=== PATIENT | female | born 1940 | race Caucasian/White ===

== ENCOUNTER → 2016-07-28 | Outpatient (REF) ==
[~2016-07-28] MED LIST: ASPIRIN 81M81 MG/TA2 PO; CEFTIN 250250 MG/TAB PO; CIPRO 500MG TA500 MG PO; COZAAR 25MG25 MG/TAB PO; DOXYCYCLINE 10100 MG PO; FLOMAX 0.40.4 MG/CAP PO; GLUCOPHAGE500 MG/TAB PO; HCTZ; HIGH BLOOD PRESSURE; KETOROLAC10 MG PO; LASIX 20MG TABL20 MG PO; LEVAQUIN 750MG750 M1 PO; LEVOTHYROXIN0.088 MG PO; LOSARTAN POTASS1 TA2 PO; MACROBID 1100 MG/CAP PO; NORCO 325 MG-51 TAB PO; PERCOCET 325 MG1 TA2 PO; PERCOCET 5/321 UDTAB PO; PHENERGAN 25 TA25 MG PO; PHENERGAN W/CO120 M1 PO; PHENERGAN25 MG RC; PYRIDIUM 100MG100 MG PO; SYNTHROID0.088 MG/T PO; SYNTHROID0.1 MG/TAB PO; THYROID; TIROSINT125 MC1 PO; ULTRAM50 MG PO
== END ==
LOC: ZLAB.WCH 10:20
DX: Z01.89 Encounter for other specified special examinations (principal)

== ENCOUNTER → 2016-07-28 | Outpatient (REF) | LOC: ZLAB.WCH 10:25 | DX: Z01.89 Encounter for other specified special examinations (principal) ==

== ENCOUNTER 2016-10-20 05:23 | Day surgery (SDC) | payer MEDICARE, OTHER ==
[2016-10-20] VITALS (11 sets, daily range): BP systolic 131–180; BP diastolic 56–85; PULSE 54–64; TEMP 97.4–97.8
[~2016-10-20] VITALS: Ht 170.2 cm; Wt 84.7 kg
[~2016-10-20 05:23] MED LIST changes: -GLUCOPHAGE500 MG/TAB PO; -TIROSINT125 MC1 PO
[2016-10-20 06:37] LABS: CALCIUM 9.6 mg/dL (8.4-10.2); CREATININE, serum 0.69 mg/dL (0.52-1.25); POTASSIUM 4.1 mmol/L (3.4-5.0)
[2016-10-20] MEDS ORDERED: TIROSINT125 MC1 PO (06:54)
[2016-10-20] MEDS ORDERED: GLUCOPHAGE500 MG/TAB PO (06:59)
== END 2016-10-20 13:10 | disposition home or self-care (01) ==
LOC: SDCO 05:23
PROVIDERS: Nurse Anesthetist, Certified Registered
DX: N20.0 Calculus of kidney (principal); E11.9 Type 2 diabetes mellitus without complications; I10 Essential (primary) hypertension; E03.9 Hypothyroidism, unspecified; Z87.442 Personal history of urinary calculi; Z79.82 Long term (current) use of aspirin; Z79.899 Other long term (current) drug therapy
CPT/HCPCS: C1769; C1894; C2617; J0690; J1940; J2250; J2405; J2704; J3010; J7030; Q9967

== ENCOUNTER → 2020-12-03 | Outpatient (REF) ==
[~2020-12-03] MED LIST changes: +COUMADIN 5MG5 MG/TAB PO; +GLUCOPHAGE500 MG/TAB PO; +LIPITOR20 MG PO; +SYNTHROID0.112 MG/T PO; +TIROSINT125 MC1 PO; +TOPROL XL 25MG25 MG PO
== END ==
LOC: ZLAB.WCH 09:27
DX: Z01.89 Encounter for other specified special examinations (principal)

== ENCOUNTER 2020-12-04 08:00 | Inpatient (IN) | payer MEDICARE, OTHER ==
[~2020-12-04] VITALS: Ht 170.2 cm; Wt 75.5 kg
[~2020-12-04 08:00] MED LIST changes: -COUMADIN 5MG5 MG/TAB PO; -LIPITOR20 MG PO; -SYNTHROID0.112 MG/T PO; -TOPROL XL 25MG25 MG PO
[2020-12-04 08:59] LABS: BASO % 0.2 % (0.0-2.0); GRAN # 4.6 (1.4-6.5); GRAN % 72.4 % (42.2-75.2); HEMATOCRIT 45.6 % (37.0-47.0); LYMPH # 1.1 (1.2-3.4); LYMPH % 17.1 % (20.0-51.0); MEAN CELL VOLUME 89 fl (80.0-100.0); MEAN CORPUSCULAR HEMOGLOBIN 29 pg (27.0-31.0); MEAN CORPUSCULAR HGB CONC 33 g/dl (33.0-37.0); MEAN PLATELET VOLUME 9.8 fl (7.4-10.4); MONO # 0.6 (0.1-0.6); PLATELET COUNT 170 K/mm3 (130-400); RED BLOOD COUNT 5.15 M/mm3 (4.10-5.30); REDCELL DISTRIBUTION WIDTH-CV 14.5 % (11.5-14.5)
[2020-12-04 09:22] LABS: ALANINE AMINOTRANSFERASE 45 U/L (4-34); ALBUMIN 3.9 gm/dL (3.5-5.0); ALKALINE PHOSPHATASE 87 U/L (50-136); ANION GAP 8 mmol/L (7-16); AST,SGOT 49 U/L (15-37); BILIRUBIN,TOTAL 0.7 mg/dL (0.0-1.0); BLOOD UREA NITROGEN 15 mg/dL (7-17); CALCIUM 8.7 mg/dL (8.4-10.2); CARBON DIOXIDE 23 mmol/L (22-30); CHLORIDE 104 mmol/L (98-107); CREATININE, serum 0.55 (0.52-1.25); GLUCOSE 171 mg/dL (74-106); INR 2.3 (0.8-3.0); POTASSIUM 3.9 mmol/L (3.4-5.0); PROTHROMBIN TIME 25.6 SECONDS (9.7-12.8); SODIUM 136 mmol/L (137-145); TOTAL PROTEIN 8.1 gm/dL (6.4-8.2); TROPONIN-I < 0.012 ng/mL (0.000-0.035)
[2020-12-04 09:33] LABS: C-REACTIVE PROTEIN 1.8 mg/dL (0.0-0.9); LIPASE 79 U/L (23-300)
[2020-12-04] MEDS ORDERED: TOPROL XL 25MG25 MG PO (10:05)
[2020-12-04] MEDS ORDERED: COUMADIN 5MG5 MG/TAB PO (10:06)
[2020-12-04] MEDS ORDERED: LIPITOR20 MG PO (10:06)
[2020-12-04] MEDS ORDERED: SYNTHROID0.112 MG/T PO (10:08)
[2020-12-04 12:30] VITALS: BP 163/87; PULSE 92; TEMP 99.1
--- NOTE | 2020-12-04 14:28 | NUR ---
Contacted Maddy STERN, contacted by TELE patients HR at 40 for approximately 1 minute, while on phone with Maddy patients HR rating from 70-150.
[2020-12-04 15:31] VITALS: BP 159/87; PULSE 106; TEMP 102.2
[2020-12-04 17:45] VITALS: TEMP 99.1
--- NOTE | 2020-12-04 18:15 | NUR ---
Patient has done well throughout the day, remains on 2 L of oxygen via NC. Patient denies pain at this time. Patient states she has had mild nausea throughout the day, zofran given per orders. Fluids infusing per orders. Bed alarm on, call light in reach. Patient up to restroom with unsteady gait, x1 assist. Denies further needs at this time. Will report off to nightman.
[2020-12-04 20:15] VITALS: BP 154/76; PULSE 92; TEMP 98
[2020-12-04 23:24] VITALS: BP 137/83; PULSE 94; TEMP 99.1
[2020-12-05] VITALS (7 sets, daily range): BP systolic 123–174; BP diastolic 51–98; PULSE 79–120; TEMP 97.3–101.1
--- NOTE | 2020-12-05 08:30 | NUR ---
PT AOX4, REPORTS NAUSEA, ZOFRAN GIVEN, PT REFUSED MORNING PILLS DUE TO UPSET STOMACH, EDUCATED PT ON NEED FOR BP MEDICATIONS LEAST, TOOK BP MEDICATION. PT REFUSED BREAKFAST. VITALS TAKEN AND STABLE. PT ASSESSMENT PERFORMED, IV FLUIDS INFUSING, REMDESIVIR HUNG AND INFUSING, TALKED TO PT DAUGHTER ABOUT REMDESIVIR BEFORE PT WOULD AGREE TO TREATMENT. PT APPEARS TO BE VERY DEPENDENT ON HER DAUGHTER FOR MEDICAL DECISIONS.
--- NOTE | 2020-12-05 12:12 | NUR ---
PT STILL HAS UPSET STOMACH, REPORTS DRY HEAVING, HAD SOFT FORMED BM AND COMMODE WAS EMPTIED, BROUGHT IN TOAST AND SALTINES FOR PT BUT PT REFUSED, PT TOOK REST OF MORNING PILLS AND SAID "IM NOT TAKING ANY MORE PILLS". PT ALSO STATED "IM JUST NEVER GOING TO GET BETTER", EDUCATED PT THAT IF SHE CONTINUES TO TAKE MEDICATION AND AMBULATE WITH RT THAT SHE WOULD GET BETTER AND THAT REFUSING TREATMENT WOULD ONLY HINDER HER PROGRESS. VITALS TAKEN, DENIES PAIN.
--- NOTE | 2020-12-05 14:22 | NUR ---
SW called patient to complete intake due to patient being in isolated room. Patient did not answer phone in room. SW called [facility] to obtain intake information. Daughter Aleksandra [phone] stated patient lives with her Moises [phone]. Daughter stated that patient does not utilize DME and is independent with ADL's. Daughter provides that patient's PCP is Dr. Haines, pharmacy is [facility] and patient is able to afford medications. Daughter stated that patient does not have anyone specifically appointed as DPOA-HC, and that patient's plan is to return to her home upon DC. SW will continue to follow. Plan: Home with spouse in [place]
[2020-12-05 14:56] LABS: BASO % 0.1 % (0.0-2.0); GRAN # 7.2 (1.4-6.5); GRAN % 85.3 % (42.2-75.2); HEMATOCRIT 44.5 % (37.0-47.0); HEMOGLOBIN 14.5 g/dl (12.5-16.0); LYMPH # 0.8 (1.2-3.4); LYMPH % 9.3 % (20.0-51.0); MEAN CELL VOLUME 89 fl (80.0-100.0); MEAN CORPUSCULAR HEMOGLOBIN 29 pg (27.0-31.0); MEAN CORPUSCULAR HGB CONC 33 g/dl (33.0-37.0); MEAN PLATELET VOLUME 10.5 fl (7.4-10.4); MONO # 0.4 (0.1-0.6); MONO % 4.9 % (1.7-9.3); PLATELET COUNT 147 K/mm3 (130-400); RED BLOOD COUNT 5.01 M/mm3 (4.10-5.30); REDCELL DISTRIBUTION WIDTH-CV 14.6 % (11.5-14.5)
[2020-12-05 15:06] LABS: ALBUMIN 3.5 gm/dL (3.5-5.0); BILIRUBIN,TOTAL 0.5 mg/dL (0.0-1.0); CALCIUM 8.4 mg/dL (8.4-10.2); CREATININE, serum 0.65 (0.52-1.25); POTASSIUM 3.7 mmol/L (3.4-5.0); TOTAL PROTEIN 7.6 gm/dL (6.4-8.2)
--- NOTE | 2020-12-05 17:25 | NUR ---
ADVANCED TO GENERAL DIET TOLERATED. PT REFUSING MEALS, PT INSISTENT UPON HAVING HER LAST RIGHTS READ TO HER FROM A LEGAL LIBRARIAN, PT REFUSING MEDICATION AT DINNER TIME,
--- NOTE | 2020-12-05 21:12 | NUR ---
Patient laying in bed and resting upon enter the room. Patient opens eyes with voice. Patient alert and oriented. Patient denies any pain or discomfort at this time. Patient currently on oxygen 2L via NC. Breathing even and unlabored. Patient denies SOB or dyspnea. All scheduled meds given per AUG. PRN Tylenol given for temp of 100.5F. Crushed all medications and mixed in chocolate pudding. Patient took medication without difficulty. Call light within reach. Will continue to monitor.
[2020-12-06 04:18] VITALS: PULSE 93; TEMP 98.9
--- NOTE | 2020-12-06 07:26 | NUR ---
PT LAYING IN BED; HAS COMPLAINT OF SEVERE NAUSEA. WAS JUST GIVEN ZOFRAN PER MAR, WILL CONTACT PROVIDER FOR SOMETHING MORE. PT HAS WET RAG ON FACE TO KEEP COOL. PT EMOTIONAL STATUS IS NOT GOOD AT THIS TIME. SHE STATES SHE FEELS THOUGH SHE WANTS TO GIVE UP, AND IS NOT GOING TO MAKE IT. NO OTHER CONCERNS. WILL CONTINUE TO MONITOR.
[2020-12-06 07:39] VITALS: BP 164/92; PULSE 74; TEMP 100.4
[2020-12-06 12:05] VITALS: BP 154/98; PULSE 90; TEMP 100.3
--- NOTE | 2020-12-06 13:50 | NUR ---
General Studies Program Chair spoke with Hospitalist about PT/OT orders. SW will follow for recommendations.
[2020-12-06 15:59] VITALS: BP 147/90; PULSE 93; TEMP 99.6
--- NOTE | 2020-12-06 17:23 | NUR ---
EDUCATED PT HOW TO CALL KITCHEN FOR MEALS, PT ORDERING SNACK FOODS TO TRY, REFUSED ACIDOPHILUS, IV FLUIDS INFUSING, NO REPORTS OF DIARRHEA TODAY, PT ON 2L NC, NO COUGH PRESENT, DENIES PAIN, NO OTHER NEEDS.
[2020-12-06 21:26] VITALS: BP 120/75; PULSE 89; TEMP 98.5
--- NOTE | 2020-12-06 22:01 | NUR ---
Patient laying in bed upon enter the room. Patient alert and oriented. Patient c/o having nausea. PRN Zofran given per MAR. Ice chips and popsicle provided per patient request. IVF infusing per MAR. Patient refused all PO medications. Patient currently on 2L via NC. No acute respiratory distress noted at this time. Patient denies SOB or dysopnea. HOB elevated. Call light within reach. Will continue to monitor.
[2020-12-07 00:25] VITALS: BP 151/87; PULSE 84; TEMP 97.6
[2020-12-07 03:52] VITALS: BP 141/77; PULSE 91; TEMP 98.2
[2020-12-07 08:02] VITALS: BP 136/95; PULSE 90; TEMP 97.8
[2020-12-07 08:59] LABS: BASO % 0.1 % (0.0-2.0); GRAN # 8.8 (1.4-6.5); GRAN % 77.2 % (42.2-75.2); HEMATOCRIT 43.4 % (37.0-47.0); HEMOGLOBIN 14.2 g/dl (12.5-16.0); LYMPH # 1.7 (1.2-3.4); LYMPH % 15.1 % (20.0-51.0); MEAN CELL VOLUME 88 fl (80.0-100.0); MEAN CORPUSCULAR HEMOGLOBIN 29 pg (27.0-31.0); MEAN CORPUSCULAR HGB CONC 33 g/dl (33.0-37.0); MEAN PLATELET VOLUME 10.1 fl (7.4-10.4); MONO # 0.8 (0.1-0.6); PLATELET COUNT 187 K/mm3 (130-400); RED BLOOD COUNT 4.94 M/mm3 (4.10-5.30); REDCELL DISTRIBUTION WIDTH-CV 14.9 % (11.5-14.5)
[2020-12-07 09:09] LABS: INR 6.5 (0.8-3.0)
[2020-12-07 09:11] LABS: ALBUMIN 3.4 gm/dL (3.5-5.0); BILIRUBIN,TOTAL 0.7 mg/dL (0.0-1.0); CALCIUM 8.5 mg/dL (8.4-10.2); CREATININE, serum 0.74 (0.52-1.25); POTASSIUM 3.7 mmol/L (3.4-5.0); TOTAL PROTEIN 7.3 gm/dL (6.4-8.2)
[2020-12-07 16:42] VITALS: BP 147/80; PULSE 86; TEMP 98.2
--- NOTE | 2020-12-07 18:00 | NUR ---
Patient had an eventful day. Upon entering [facility] at shift change, patient was very upset and crying. Claimed that she had not had a bath in three days and that she was being unfairly treated because she had Covid. Stated that the previous shift had stated that she would be given a shower first thing in the AM, and demanded that she get one now. Patient assured by this RN that she would get a shower today and that I would do anything I could to make her more comfortable. Shower given. Assessment preformed, medications given. Patient has been C/O N/V through out the shift. PRN Zofran given. Patient was able to be calmed down. Patient attempted to eat today with no success. Patient titrated up to 3L of O2 via nasal cannula and is currently SATING 91%. Patient denies any further pain, discomfort, or needs at this time. Shift report given. Call light in reach. Fall precautions in place.
[2020-12-07 22:41] VITALS: BP 142/87; PULSE 88; TEMP 99
--- NOTE | 2020-12-08 00:16 | NUR ---
Mrs Viramontes has been cmplaining about bein to tired. I expained my plan to the pt. Vss. Will continue to monitor.
[2020-12-08 05:24] VITALS: BP 161/99; PULSE 90; TEMP 99
--- NOTE | 2020-12-08 06:30 | NUR ---
Pt continue to refused po meds. Synthroid and protonix were charted off.
[2020-12-08 06:44] LABS: BASO % 0.1 % (0.0-2.0); GRAN # 7.3 (1.4-6.5); GRAN % 76.7 % (42.2-75.2); HEMATOCRIT 40.2 % (37.0-47.0); HEMOGLOBIN 13.1 g/dl (12.5-16.0); LYMPH # 1.3 (1.2-3.4); LYMPH % 14.1 % (20.0-51.0); MEAN CELL VOLUME 90 fl (80.0-100.0); MEAN CORPUSCULAR HEMOGLOBIN 29 pg (27.0-31.0); MEAN CORPUSCULAR HGB CONC 33 g/dl (33.0-37.0); MONO # 0.8 (0.1-0.6); PLATELET COUNT 170 K/mm3 (130-400); RED BLOOD COUNT 4.49 M/mm3 (4.10-5.30); REDCELL DISTRIBUTION WIDTH-CV 14.8 % (11.5-14.5)
[2020-12-08 07:07] LABS: CALCIUM 8.2 mg/dL (8.4-10.2); CREATININE, serum 0.64 (0.52-1.25); POTASSIUM 3.5 mmol/L (3.4-5.0)
[2020-12-08 07:20] LABS: PROTHROMBIN TIME 84.9 SECONDS (9.7-12.8)
[2020-12-08 07:21] LABS: INR 7.5 (0.8-3.0)
[2020-12-08 09:18] VITALS: BP 151/83; PULSE 90; TEMP 98.9
--- NOTE | 2020-12-08 11:04 | NUR ---
Pt napping upon entry mary ann room, easily awakened. No C/O pain at this time. Shift assessments complete, left Pt call light in reach, bed in lowest position.
[2020-12-08 12:14] VITALS: BP 162/98; PULSE 102; TEMP 100
--- NOTE | 2020-12-08 13:44 | NUR ---
Grain Scooper reviewed PT/OT recommendations. They recommend post acute rehab. SW contacted the patient to discuss recommendation. She was agreeable to sending referrals to [facility]. Referral sent. *Discharge disposition: Post acute rehab. Referral sent to [facility] (awaiting screen). No other referrals at this time.
[2020-12-08 17:07] VITALS: BP 151/94; PULSE 41; TEMP 98.9
[2020-12-08 20:00] VITALS: BP 138/94; PULSE 87; TEMP 97.8
[2020-12-09] VITALS (7 sets, daily range): BP systolic 149–169; BP diastolic 90–106; PULSE 81–92; TEMP 97.4–98.8
--- NOTE | 2020-12-09 02:36 | NUR ---
PT 02 SATURATING 88-90 PERCENT ON NC 2L, THIS NURSE RAISED 02 TO 2/5 L, PT SATURATING OVER 92 PERCENT. NO FURTHER NEEDS EXPRESSED AT THIS TIME. CALL LIGHT WITHIN REACH.
[2020-12-09 06:19] LABS: HEMOGLOBIN 13.5 g/dl (12.5-16.0); MEAN CELL VOLUME 88 fl (80.0-100.0); MEAN CORPUSCULAR HEMOGLOBIN 29 pg (27.0-31.0); MEAN CORPUSCULAR HGB CONC 33 g/dl (33.0-37.0); MEAN PLATELET VOLUME 10.1 fl (7.4-10.4); PLATELET COUNT 201 K/mm3 (130-400); RED BLOOD COUNT 4.65 M/mm3 (4.10-5.30); REDCELL DISTRIBUTION WIDTH-CV 14.6 % (11.5-14.5)
[2020-12-09 06:35] LABS: CALCIUM 8.3 mg/dL (8.4-10.2); CREATININE, serum 0.57 (0.52-1.25); POTASSIUM 3.6 mmol/L (3.4-5.0)
[2020-12-09 06:38] LABS: INR 7.8 (0.8-3.0); PROTHROMBIN TIME 87.8 SECONDS (9.7-12.8)
--- NOTE | 2020-12-09 06:43 | NUR ---
PT REMAINED AFEBRILE OVERNIGHT, 02 SATURATION AT 2.5L SATURATING OVER 90 PERCENT. PT'S BP ELEVATED, PT CONTINUES TO REFUSE PO MEDS DUE TO PATIENT STATING HER STOMACH IS UPSET. THIS NURSE EDUCATED PT ON IMPORTANCE OF MEDICATION COMPLIANCE AND OFFERED ALTERNATE OPTIONS.PT REFUSED . PT DENIES PAIN, N/V/D/ CHILLS. PT DID NOT HAVE BM ON THIS SHIFT. PT EXPRESSES NO ADDITIONAL NEEDS AT THIS TIME. CALL LIGHT WITHIN REACH.
[2020-12-09 07:04] LABS: BAND 6 % (0-10); LYMPHOCYTE 13 % (20.0-51.0); NEUTROPHILS 70 % (42.0-75.2)
[2020-12-09 07:05] LABS: OVALOCYTES 1+; PLATELET ESTIMATE NORMAL (NORMAL)
--- NOTE | 2020-12-09 10:12 | NUR ---
Pt sleeping upon entry, easily awakened. No C/O pain at this time, Shift assessments complete, left Pt call light in reach, bed in lowest position.
[2020-12-09 12:56] LABS: ALBUMIN 2.8 gm/dL (3.5-5.0); BILIRUBIN UNCONJUGATED 0.5 mg/dL (0.0-1.1); BILIRUBIN,DIRECT 0.3 mg/dL (0.0-0.4); BILIRUBIN,TOTAL 0.8 mg/dL (0.0-1.0); TOTAL PROTEIN 6.6 gm/dL (6.4-8.2)
[2020-12-09 22:23] LABS: ARTERIAL BLD GAS O2 SATURATION 88.9 % (92-100); ARTERIAL BLD GAS TCO2 CT 27.4; ARTERIAL BLOOD GAS HCO3 26.3 meq/L (22-26); ARTERIAL BLOOD GAS PO2 53.2 mmHg (80-100); ARTERIAL BLOOD GAS pH 7.52 (7.35-7.45)
--- NOTE | 2020-12-09 22:47 | NUR ---
Contacted Terri STERN, patient oxygen at 86% on 3.5 L, increased to 5 L oxygen maintained at 86%. Increased to 10 L on oxymask, oxygen saturations increased to 90%, will decrease to high 80's when talking and with movement. Respiratory contacted for ABGs. Patient then placed on Airvo. Radiology contacted for chest Xray. Continuous VS.
[2020-12-10] VITALS (660 sets, daily range): BP systolic 127–164; BP diastolic 92–117; PULSE 84–108; TEMP 96.8–98.2; O2SAT 73–98
[2020-12-10 00:24] LABS: ARTERIAL BLD GAS O2 SATURATION 91.7 % (92-100); ARTERIAL BLD GAS TCO2 CT 27.1; ARTERIAL BLOOD GAS BASE EXCESS 3.7 (-2-2); ARTERIAL BLOOD GAS HCO3 26.1 meq/L (22-26); ARTERIAL BLOOD GAS PO2 59.8 mmHg (80-100); ARTERIAL BLOOD GAS pH 7.52 (7.35-7.45)
--- NOTE | 2020-12-10 01:15 | NUR ---
Contacted supervisor char house, patient currently on bipap. Oxygen saturations at 94%. On continuous pulse ox.
[2020-12-10 02:44] LABS: ARTERIAL BLD GAS O2 SATURATION 95.2 % (92-100); ARTERIAL BLOOD GAS BASE EXCESS 2.5 (-2-2); ARTERIAL BLOOD GAS HCO3 25.6 meq/L (22-26); ARTERIAL BLOOD GAS PCO2 35.1 mmHg (35-45); ARTERIAL BLOOD GAS PO2 76.6 mmHg (80-100); ARTERIAL BLOOD GAS pH 7.48 (7.35-7.45)
--- NOTE | 2020-12-10 05:31 | NUR ---
Patient resting comfortably with BIPAP on 100% at this time, SPO2@ 94%, kept daughter and son updated on patient condition throughout the night, Patient updated on plan of care, denies wanting to be intubated or on a ventilator, encouraged patient to conserve energy, avitia inserted using sterile techinique patient tolerated well, telemetry in use, Terri Grullon made aware of all patient changes throughout night- B/P, SPO2, increase O2 demand, Aflutter, Afib RVR >130- see progress notes, see new orders, See Mar.
[2020-12-10 05:48] LABS: ARTERIAL BLD GAS TCO2 CT 26.7
[2020-12-10 05:49] LABS: ARTERIAL BLD GAS O2 SATURATION 96.4 % (92-100); ARTERIAL BLOOD GAS BASE EXCESS 2.4 (-2-2); ARTERIAL BLOOD GAS HCO3 25.9 meq/L (22-26); ARTERIAL BLOOD GAS PCO2 36.6 mmHg (35-45); ARTERIAL BLOOD GAS PO2 86.3 mmHg (80-100); ARTERIAL BLOOD GAS pH 7.47 (7.35-7.45)
[2020-12-10 06:59] LABS: HEMATOCRIT 43.9 % (37.0-47.0); HEMOGLOBIN 14.2 g/dl (12.5-16.0); MEAN CELL VOLUME 89 fl (80.0-100.0); MEAN CORPUSCULAR HEMOGLOBIN 29 pg (27.0-31.0); MEAN CORPUSCULAR HGB CONC 32 g/dl (33.0-37.0); MEAN PLATELET VOLUME 9.9 fl (7.4-10.4); PLATELET COUNT 234 K/mm3 (130-400); RED BLOOD COUNT 4.95 M/mm3 (4.10-5.30); REDCELL DISTRIBUTION WIDTH-CV 14.4 % (11.5-14.5)
[2020-12-10 07:10] LABS: CALCIUM 8.2 mg/dL (8.4-10.2); CREATININE, serum 0.57 (0.52-1.25); POTASSIUM 3.5 mmol/L (3.4-5.0)
[2020-12-10 07:35] LABS: INR 6.8 (0.8-3.0)
[2020-12-10 07:37] LABS: PROTHROMBIN TIME 76.7 SECONDS (9.7-12.8)
[2020-12-10 08:06] LABS: BASOPHIL 2 % (0-2); HYPOCHROMIA 2+; LYMPHOCYTE 13 % (20.0-51.0); METAMYELOCYTE 3 % (0-0); NEUTROPHILS 73 % (42.0-75.2); PLATELET ESTIMATE NORMAL (NORMAL)
[2020-12-10 08:07] LABS: TEAR DROP CELLS 1+
--- NOTE | 2020-12-10 08:16 | NUR ---
Pt in bed on BiPAP, currently saturating at 97% O2, HR 92 per Pulseoximeter, sleeping upon entry, easily awakened, no distress at this time. No C/O pain at this time. Shift assessment complete, left Pt call light in reach.
--- NOTE | 2020-12-10 12:30 | NUR ---
RECEIVED PATIENT FROM ICU ON TELEMETRY AND BIPAP. PATIENT SEEMS TEARFUL AND ANXIOUS AT THIS TIME. CURRENTLY ON 100% FIO2. HAS PICC IN JADEN IN PLACE. NO SKIN ISSUES NOTICED OTHER THAN RED BOTTOM. SATURATION LEVEL IS MID/HIGH 80s TO LOW 90s. HYPERTENSIVE BUT VSS, OTHERWISE. KAELA AT BEDSIDE. DISCUSSED CONCERNS FOR HYPERTENSION AND FLUID BALANCE. WILL HOLD OFF FOR NOW. PATIENT HAS ALSO EXPRESSED CHANGE IN CODE STATUS TO DNR. DR SHERWOOD AGREEABLE TO CHANGE CODE STATUS FOR PATIENT.
--- NOTE | 2020-12-10 14:54 | NUR ---
The patient was transferred to the ICU. *Discharge disposition at this time: Referral sent to [facility]. Awaiting screen.
[2020-12-11] VITALS (1326 sets, daily range): BP systolic 120–186; BP diastolic 85–156; PULSE 78–107; TEMP 96.3–98.7; O2SAT 66–97
[2020-12-11 04:20] LABS: BASO % 0.1 % (0.0-2.0); GRAN # 11.8 (1.4-6.5); HEMOGLOBIN 14.7 g/dl (12.5-16.0); LYMPH # 1.5 (1.2-3.4); LYMPH % 10.2 % (20.0-51.0); MEAN CELL VOLUME 88 fl (80.0-100.0); MEAN CORPUSCULAR HEMOGLOBIN 29 pg (27.0-31.0); MEAN CORPUSCULAR HGB CONC 33 g/dl (33.0-37.0); MEAN PLATELET VOLUME 9.5 fl (7.4-10.4); MONO # 1.5 (0.1-0.6); MONO % 9.8 % (1.7-9.3); PLATELET COUNT 274 K/mm3 (130-400); REDCELL DISTRIBUTION WIDTH-CV 14.4 % (11.5-14.5)
[2020-12-11 04:33] LABS: CALCIUM 8.5 mg/dL (8.4-10.2); CREATININE, serum 0.52 (0.52-1.25); POTASSIUM 3.9 mmol/L (3.4-5.0)
--- NOTE | 2020-12-11 07:33 | NUR ---
RECEIVED REPORT FROM SUZANNE DUNN. PATIENT IS RESTING IN BED ON BIPAP WITH EYES CLOSED. PATIENT STIL HYPERTENSIVE AND IN AFIB/FLUTTER WHICH IS BASELINE FOR PATIENT. VSS, OTHERWISE. LATIF CATHETER PATENT, DRAINING TO GRAVITY, FREE OF KINKS AND DEPENDENT LOOPS. CALL LIGHT WITHIN REACH AND PICC IN PLACE IN JADEN. SEEMS CALM AT THIS TIME.
--- NOTE | 2020-12-11 09:11 | NUR ---
DR. JOHNSON AT BEDSIDE. ORDERS RECEIVED AND PLAN OF CARE DISCUSSED WITH THIS NURSE AND PATIENT.
[2020-12-11 09:52] LABS: INR 1.8 (0.8-3.0); PROTHROMBIN TIME 19.8 SECONDS (9.7-12.8)
--- NOTE | 2020-12-11 10:38 | NUR ---
DR. SHERWOOD AT BEDSIDE. DISCUSSED HOW PATIENT TOLERATED LAST NIGHT. AGREEABLE TO TRY AIRVO FOR AT LEAST AN HOUR IN ORDER TO ALLOW PATIENT TO RECEIVE ENSURE FOR ADEQUATE PROTEIN INTAKE. WILL CALL RESPIRATORY.
[2020-12-12] VITALS (1133 sets, daily range): BP systolic 130–158; BP diastolic 79–98; PULSE 69–101; TEMP 97.4–98.5; O2SAT 72–100
[2020-12-12 05:17] LABS: BASO % 0.1 % (0.0-2.0); GRAN % 82.6 % (42.2-75.2); HEMATOCRIT 44.2 % (37.0-47.0); HEMOGLOBIN 14.2 g/dl (12.5-16.0); LYMPH # 1.3 (1.2-3.4); LYMPH % 7.9 % (20.0-51.0); MEAN CELL VOLUME 89 fl (80.0-100.0); MEAN CORPUSCULAR HEMOGLOBIN 29 pg (27.0-31.0); MEAN CORPUSCULAR HGB CONC 32 g/dl (33.0-37.0); MEAN PLATELET VOLUME 9.4 fl (7.4-10.4); MONO # 1.3 (0.1-0.6); MONO % 7.8 % (1.7-9.3); PLATELET COUNT 246 K/mm3 (130-400); RED BLOOD COUNT 4.95 M/mm3 (4.10-5.30); REDCELL DISTRIBUTION WIDTH-CV 14.5 % (11.5-14.5)
[2020-12-12 05:23] LABS: INR 1.4 (0.8-3.0); PROTHROMBIN TIME 15.1 SECONDS (9.7-12.8)
[2020-12-12 05:29] LABS: CALCIUM 8.4 mg/dL (8.4-10.2); CREATININE, serum 0.52 (0.52-1.25)
[2020-12-12 05:58] LABS: ARTERIAL BLD GAS O2 SATURATION 97.4 % (92-100); ARTERIAL BLD GAS TCO2 CT 29.9; ARTERIAL BLOOD GAS BASE EXCESS 4.1 (-2-2); ARTERIAL BLOOD GAS HCO3 28.6 meq/L (22-26); ARTERIAL BLOOD GAS PCO2 42.4 mmHg (35-45); ARTERIAL BLOOD GAS pH 7.45 (7.35-7.45)
--- NOTE | 2020-12-12 19:18 | NUR ---
SamanthaRT notified pt wishing to try something other than BiPAP. During hydration and meals pt maintains SpO2 at 90% with OxyMask at 15L/min.
--- NOTE | 2020-12-12 20:26 | NUR ---
Assessment complete. Pt is AXO X3, denies having any pain at this time. Pt requested to sit on the side of the bed for a few minutes and then was helped to lie back down. She is now resting quietly in the bed and she denies further needs. Call light within reach.
[2020-12-13] VITALS (809 sets, daily range): BP systolic 127–146; BP diastolic 86–110; PULSE 75–121; TEMP 97.6–98.5; O2SAT 75–100
[2020-12-13 05:43] LABS: HEMATOCRIT 44.1 % (37.0-47.0); HEMOGLOBIN 14.1 g/dl (12.5-16.0); MEAN CELL VOLUME 90 fl (80.0-100.0); MEAN CORPUSCULAR HEMOGLOBIN 29 pg (27.0-31.0); MEAN CORPUSCULAR HGB CONC 32 g/dl (33.0-37.0); MEAN PLATELET VOLUME 9.4 fl (7.4-10.4); PLATELET COUNT 276 K/mm3 (130-400); RED BLOOD COUNT 4.92 M/mm3 (4.10-5.30); REDCELL DISTRIBUTION WIDTH-CV 14.5 % (11.5-14.5)
[2020-12-13 05:53] LABS: CALCIUM 8.6 mg/dL (8.4-10.2); CREATININE, serum 0.56 (0.52-1.25); POTASSIUM 4.2 mmol/L (3.4-5.0)
[2020-12-13 05:55] LABS: INR 1.3 (0.8-3.0); PROTHROMBIN TIME 14.5 SECONDS (9.7-12.8)
[2020-12-13 06:26] LABS: LYMPHOCYTE 7 % (20.0-51.0); METAMYELOCYTE 1 % (0-0); NEUTROPHILS 84 % (42.0-75.2)
[2020-12-13 06:27] LABS: OVALOCYTES 1+; PLATELET ESTIMATE NORMAL (NORMAL); POIKILOCYTOSIS 1+; POLYCHROMASIA 1+
--- NOTE | 2020-12-13 07:15 | NUR ---
RECEIVED REPORT FROM SUZANNE WEBBER. PATIENT IS RESTING IN BED ON BIPAP WITH EYES CLOSED. JADEN PICC IS PATENT WITH GOOD BLOOD RETURN. LATIF IS PATENT, DRAINING TO GRAVITY, FREE OF KINKS AND DEPENDENT LOOPS. CALL LIGHT WITHIN REACH.
--- NOTE | 2020-12-13 07:22 | NUR ---
Bedside shift report given to SUZANNE Dsouza.
--- NOTE | 2020-12-13 08:35 | NUR ---
DR. JOHNSON AT BEDSIDE. SPOKE TO PATIENT AND ADDRESSED CONCERNS AND QUESTIONS. NO ORDERS AT THIS TIME. PLAN REMAINS TO STAY ON BIPAP.
--- NOTE | 2020-12-13 08:47 | NUR ---
WENT INTO PATIENT'S ROOM TO DO FULL ASSESSMENT, TO BATHE AND PROVIDE ORAL CARE TO THE PATIENT AND PASS MORNING MEDICATIONS. PATIENT TOOK MORNING MEDS WITH ENSURE AND FINISHED IT. ALSO GAVE PATIENT SIPS OF WATER IN BETWEEN BREAKS WITH THE BIPAP MASK TO RECOVER OXYGEN SATURATION. PATIENT WAS ABLE TO STAND AND PIVOT TO GET INTO THE CHAIR IN ORDER FOR A BED CHANGE. PATIENT STATED SHE FELT VERY TIRED AND LIKE SHE WAS "GOING TO PASS OUT". FINISHED BATHING PATIENT AND QUICKLY GOT HER BACK TO BED. GAVE ONE LAST SIP OF WATER PRIOR TO GIVING PATIENT BACK CALL MCMULLEN AND LEAVING THE ROOM.
--- NOTE | 2020-12-13 09:57 | NUR ---
APPROACHED BY DIETARY SPECIALIST AND NOTIFIED THAT PATIENT WILL BE STARTING TPN TODAY. SPECIALIST STATED THE ORDERS WILL BE PLACED IN THE CHART.
[2020-12-13 10:39] LABS: ALBUMIN 2.9 gm/dL (3.5-5.0); BILIRUBIN,TOTAL 1.2 mg/dL (0.0-1.0); MAGNESIUM 2.4 mg/dL (1.6-2.3); TOTAL PROTEIN 6.8 gm/dL (6.4-8.2)
[2020-12-13 10:46] LABS: PRE ALBUMIN 14.7 mg/dL (17.6-36.0)
--- NOTE | 2020-12-13 11:10 | NUR ---
DR. COHEN AT BEDSIDE. GAVE DOCTOR UPDATES AND DISCUSSED PLAN OF CARE. ORDERS RECEIVED.
--- NOTE | 2020-12-13 11:35 | NUR ---
RECEIVED A CALL FROM EMORY, DAUGHTER OF PATIENT. ANJALIBRADLY STATED THAT THE PATIENT WANTED TO HAVE A DRINK OF WATER. CONCERN WAS ADDRESSED ON THE PHONE WITH EXPLANATION THAT THIS NURSE WOULD GO IN ABOUT NOON TO CHECK SUGAR, GIVE ENSURE AND WATER AND AFTERNOON MEDICATION. THIS NURSE GAVE AN UPDATE TO DAUGHTER EXPLAINING THAT THE PATIENT HAS MINORLY IMPROVED WITH O2 SATURATION ON BIPAP WHEN AT REST AND SLEEPING. EXPLAINED THAT PATIENT WILL BE STARTING TOTAL PARENTERAL NUTRITION TODAY AND THAT PATIENT WAS SEEN THIS MORNING, ASSESSED FULLY AND GIVEN A BATH, ORAL CARE, ENSURE AND WATER WHILE RECEIVING CARE. ALL QUESTIONS AND CONCERNS ADDRESSED. THE DAUGHTER HAD STATED THAT THE PATIENT EXPRESSED WANTING TO BE [facility]. THIS NURSE STATED THAT SHE WOULD ADDRESS THAT WITH MANAGEMENT AND DOCTORS.
--- NOTE | 2020-12-13 11:38 | NUR ---
CALLED DR. COHEN AND STATED THE FAMILY OF PATIENT WOULD LIKE AN UPDATE. GAVE NAME AND PHONE NUMBER TO DOCTOR.
--- NOTE | 2020-12-13 11:45 | NUR ---
RECEIVED A MESSAGE FROM SUZANNE GARCIA THAT PATIENT'S DAUGHTER WAS UPSET THAT PATIENT HAD NOT RECEIVED WATER YET. I GATHERED MEDICATIONS AND HEADED IN. GAVE PATIENT WATER, ENSURE AND GAVE AFTERNOON MEDICATIONS AND ASSESSED PATIENT.
--- NOTE | 2020-12-13 12:00 | NUR ---
PATIENT'S DAUGHTER HAD ASKED TO SPEAK TO CHARGE NURSE, WHICH IS EZEKIEL TODAY. UPDATED EZEKIEL ON SITUATION. EZEKIEL SPOKE TO DAUGHTER AND EXPLAINED THAT PATIENT CANNOT HAVE A LOT OF WATER BECAUSE OF RISK OF ASPIRATION AND PATIENT ALREADY HAS PNEUMONIA DUE TO COVID. CHARGE NURSE RELAYED THAT DAUGHTER HAD WISHED TO SPEAK TO A PATIENT ADVOCATE AND THE TRACTOR TRAILER DRIVER AND THAT THE CHARGE NURSE WOULD CALL TO NOTIFY THEM OF THE SITUATION. SPOKE TO GIL, CONSULTING MANAGER AND UPDATED ON SITUATION. AFTER GIL SPOKE TO PATIENT ADVOCATE, [place], SHE TOLD GIL THAT SHE WAS FAMILIAR WITH THE CASE AND WOULD BE CALLING THE FAMILY.
--- NOTE | 2020-12-13 13:10 | NUR ---
CALLED DR. COHEN AGAIN TO NOTIFY THAT PATIENT'S FAMILY WOULD LIKE AN UPDATE AND ALSO NOTIFIED DR. JOHNSON TO CALL WELL WHEN HE HAD A MOMENT.
--- NOTE | 2020-12-13 19:44 | NUR ---
Received report from SUZANNE Dsouza. All medications verified and all questions answered. Patient resting in room with TV on, patient on bipap with settings of 16/12 at 100% FiO2. VSS. No concerns or complaints noted at this time. Wll resume care at this time.
[2020-12-14] VITALS (833 sets, daily range): BP systolic 123–162; BP diastolic 82–116; PULSE 85–147; TEMP 97.1–98.8; O2SAT 75–100
[2020-12-14 04:05] LABS: BASO % 0.2 % (0.0-2.0); GRAN # 16.8 (1.4-6.5); GRAN % 86.2 % (42.2-75.2); HEMATOCRIT 43.4 % (37.0-47.0); LYMPH # 1.1 (1.2-3.4); LYMPH % 5.4 % (20.0-51.0); MEAN CELL VOLUME 90 fl (80.0-100.0); MEAN CORPUSCULAR HEMOGLOBIN 29 pg (27.0-31.0); MEAN CORPUSCULAR HGB CONC 32 g/dl (33.0-37.0); MEAN PLATELET VOLUME 9.5 fl (7.4-10.4); MONO # 1.3 (0.1-0.6); MONO % 6.8 % (1.7-9.3); PLATELET COUNT 279 K/mm3 (130-400); RED BLOOD COUNT 4.82 M/mm3 (4.10-5.30); REDCELL DISTRIBUTION WIDTH-CV 14.4 % (11.5-14.5)
[2020-12-14 04:18] LABS: CALCIUM 8.8 mg/dL (8.4-10.2); CREATININE, serum 0.57 (0.52-1.25); MAGNESIUM 2.3 mg/dL (1.6-2.3); PHOSPHOROUS 3.2 mg/dL (2.5-4.5); POTASSIUM 4.1 mmol/L (3.4-5.0)
[2020-12-14 05:55] LABS: INR 1.8 (0.8-3.0); PROTHROMBIN TIME 20.6 SECONDS (9.7-12.8)
--- NOTE | 2020-12-14 07:00 | NUR ---
Report received from Sachin RN
--- NOTE | 2020-12-14 08:40 | NUR ---
Patient trialed on Airvo at this time. She lasted about 15 minutes before getting very anxious and tired. She was placed back on Bipap and will be given Klonopin to help with anxiety and try airvo again later.
--- NOTE | 2020-12-14 09:15 | NUR ---
Update given to daughter, Aleksandra
--- NOTE | 2020-12-14 13:00 | NUR ---
Patient placed on AirVo at max settings at this time. She is reminded to relax and take slow deep breaths. She verbalizes understanding.
--- NOTE | 2020-12-14 14:55 | NUR ---
Hospitalist spoke with JOANNA Vitale about [facility] referral. SW contacted patient's daughter, Aleksandra and advised that Hospitalist feels patient is a candidate for [facility]. Aleksandra is hesitant about the distance but was open to speaking with Humberto, Clinical Liason. JOANNA contacted Humberto and faxed referral. Discharge Plan: [facility] eval pending
--- NOTE | 2020-12-14 18:00 | NUR ---
Patient remains on AirVo and settings are 60L/75% FiO2
--- NOTE | 2020-12-14 19:18 | NUR ---
Report given to SUZANNE Strange
[2020-12-14 20:58] LABS: ARTERIAL BLD GAS O2 SATURATION 95.5 % (92-100); ARTERIAL BLD GAS TCO2 CT 30.4; ARTERIAL BLOOD GAS BASE EXCESS 4.9 (-2-2); ARTERIAL BLOOD GAS HCO3 29.1 meq/L (22-26); ARTERIAL BLOOD GAS PCO2 41.5 mmHg (35-45); ARTERIAL BLOOD GAS PO2 77.3 mmHg (80-100); ARTERIAL BLOOD GAS pH 7.46 (7.35-7.45)
--- NOTE | 2020-12-14 21:45 | NUR ---
1950: Patient had coughing spell while respiratory replaced Airvo water. Upon arrival in room patient reporting difficulty breathing along with anxiety. Patient saturations 82%. AirVo increased to 60L 85% FiO2. Educated patient on relaxation techniques and breathing techniques. 2007: Patient oxygen saturations not improving. Patient switched to bipap. Patient up to 87% oxygen saturations at 85% fio2. Patient settings 02/06. 2011: increased patient to 90% fio2 on bipap. Patient increased to 88% oxygen saturation. Patient reporting "I feel like I cannot get enough air." 2014: Veronica ADAMSON contacted and updated on patient situation. Orders for EKG, ABG, CRX, and breathing treatment placed. Also increased patient to 95% fio2 with a saturation increasing to 93%. 2021: Radiology, Respiratory therapy and Veronica ADAMSON arrived to patient room. Veronica Adamson discussing code status with patient. 2034: Patient remains anxious. Reeducated on relaxation and breathing techniques. Per Veronica ADAMSON given 0.5mg of IV ativan now. 2038 Patient at 92% oxygen saturations at 95% fio2. Patient tachy 120-140s, afib RVR. Veronica ADAMSON will review patient chart and call with orders 2099: Per Veronica ADAMSON will add Metoprolol 5mg IV now. 2131: Metoprolol given to patient. Patient resting comfortably in bed at this time with bipap on. Denies needs. Call light in reach.
[2020-12-15] VITALS (1204 sets, daily range): BP systolic 124–136; BP diastolic 74–108; PULSE 82–124; TEMP 97.2–100.2; O2SAT 76–99
--- NOTE | 2020-12-15 | NUR ---
Resting in bed. Remains on bipap. Denies needs at this time. Call light in reach.
[2020-12-15 05:15] LABS: HEMATOCRIT 41.5 % (37.0-47.0); HEMOGLOBIN 13.4 g/dl (12.5-16.0); MEAN CELL VOLUME 90 fl (80.0-100.0); MEAN CORPUSCULAR HEMOGLOBIN 29 pg (27.0-31.0); MEAN CORPUSCULAR HGB CONC 32 g/dl (33.0-37.0); MEAN PLATELET VOLUME 9.6 fl (7.4-10.4); PLATELET COUNT 234 K/mm3 (130-400); REDCELL DISTRIBUTION WIDTH-CV 14.6 % (11.5-14.5)
[2020-12-15 05:26] LABS: CALCIUM 8.2 mg/dL (8.4-10.2); CREATININE, serum 0.52 (0.52-1.25); MAGNESIUM 2.2 mg/dL (1.6-2.3); POTASSIUM 3.9 mmol/L (3.4-5.0)
[2020-12-15 05:32] LABS: PRE ALBUMIN 15.3 mg/dL (17.6-36.0)
--- NOTE | 2020-12-15 06:21 | NUR ---
Patient remained on bipap throughout night. Resting in bed this AM. call light in reach.
--- NOTE | 2020-12-15 07:37 | NUR ---
Report given to SUZANNE Sykes
--- NOTE | 2020-12-15 08:30 | NUR ---
Patient restless in bed ; request to go on airvo. 02 mid 80's on highest airvo settings. HR A-fib up to 140's. Patient alert and restless but in no distress. Denies and dizziness or chest pain. Dr. Brothers at bedside. Replaced BIPAP and will give amio bolus and initiate amio drip per protocol. Cardiology paged and awaiting a response.
--- NOTE | 2020-12-15 08:46 | NUR ---
BRIDGETTE, RN WITH CARDIOLOGY CALLED REGARDING PERSISTENT TACHYCARDIA WHILE IN AFIB. DR. JOHNSON ORDERED AMIO BOLUS WITH GTT. SHE IS TOLD THIS. THEY WILL ROUND AND GIVE RECOMMENDATIONS
[2020-12-15 12:27] LABS: INR 2.3 (0.8-3.0); PROTHROMBIN TIME 25.6 SECONDS (9.7-12.8)
--- NOTE | 2020-12-15 13:58 | NUR ---
Piano Machine Operator attended clinical rounds with the team. Patient is back on bipap. Hospitalist discussed palliative consult for a goals of care discussion. SW contacted Humberto at [facility] to provide update. Humberto advised he spoke with patient's daughter yesterday. Discharge Plan: [facility] Eval Pending
--- NOTE | 2020-12-15 17:26 | NUR ---
Attempted to transition to AIR VO. Tolerated for a few minutes then requested to go back on BIPAP as the AIRVO was "buring" her nose. Water jug for humidification was full. Assited back to BIPAP. Assisted patient to call her daughter on the phone. Had a brief conversation before hanging up. Will continue to monitor.
--- NOTE | 2020-12-15 20:59 | NUR ---
PATIENT IS TEARFUL ABOUT SITUATION WITH WEARING MASK ALL THE TIME, PATIENT ABLE TO VENT, CALMNESS REACHES PATIENT THROUGH CONFERSATING ABOUT ILLNESS, COOPERATIVE SOCIALABLE.
[2020-12-16] VITALS (1152 sets, daily range): BP systolic 115–169; BP diastolic 60–94; PULSE 74–97; TEMP 97–98.4; O2SAT 70–97
[2020-12-16 05:55] LABS: HEMATOCRIT 37.9 % (37.0-47.0); HEMOGLOBIN 11.9 g/dl (12.5-16.0); MEAN CELL VOLUME 90 fl (80.0-100.0); MEAN CORPUSCULAR HEMOGLOBIN 28 pg (27.0-31.0); MEAN CORPUSCULAR HGB CONC 31 g/dl (33.0-37.0); MEAN PLATELET VOLUME 9.8 fl (7.4-10.4); PLATELET COUNT 199 K/mm3 (130-400); REDCELL DISTRIBUTION WIDTH-CV 14.6 % (11.5-14.5)
[2020-12-16 06:10] LABS: ARTERIAL BLD GAS O2 SATURATION 92.9 % (92-100); ARTERIAL BLD GAS TCO2 CT 32.1; ARTERIAL BLOOD GAS BASE EXCESS 6.1 (-2-2); ARTERIAL BLOOD GAS HCO3 30.7 meq/L (22-26); ARTERIAL BLOOD GAS PCO2 44.1 mmHg (35-45); ARTERIAL BLOOD GAS PO2 62.7 mmHg (80-100); ARTERIAL BLOOD GAS pH 7.46 (7.35-7.45)
[2020-12-16 06:10] LABS: ALBUMIN 2.7 gm/dL (3.5-5.0); BILIRUBIN,TOTAL 0.8 mg/dL (0.0-1.0); CALCIUM 8.5 mg/dL (8.4-10.2); CREATININE, serum 0.47 (0.52-1.25); MAGNESIUM 2.4 mg/dL (1.6-2.3); TOTAL PROTEIN 6.5 gm/dL (6.4-8.2)
[2020-12-16 07:09] LABS: PROTHROMBIN TIME 22.6 SECONDS (9.7-12.8)
--- NOTE | 2020-12-16 09:00 | NUR ---
Patient placed on Airvo at 60L/95% at this time. She is given much emotional encouragement at this time. She is given PRN klonopin at this time time to help with anxiety.
--- NOTE | 2020-12-16 12:00 | NUR ---
Patient continues to wear Airvo at this time. She maintains SPO2 at 88% on max settings.
--- NOTE | 2020-12-16 14:30 | NUR ---
Patient placed back on bipap at 100% fio2. She is getting quite tired and would benefit from Bipap for a little while. Will continue to monitor.
--- NOTE | 2020-12-16 16:27 | NUR ---
Meeting with family and Dr. Brothers scheduled for 0800 tomorrow morning, per Chio in SW
--- NOTE | 2020-12-16 16:35 | NUR ---
PATIENT SWITCHES TO AIRVO MAX SETTINGS AT THIS TIME. WILL CONTINUE TO MONITOR CLOSELY
--- NOTE | 2020-12-16 16:49 | NUR ---
Information Services Consultant faxed clinical updates to Humberto at [facility]. JOANNA also spoke with Humberto to provide update. Physicians requested family meeting. JOANNA contacted patient's daughter, Aleksandra and scheduled meeting for sundeep at 0830. Aleksandra advised meeting will just be her and her brother, Jesse (ph#[phone]). Aleksandra was fine with just a phone conference. JOANNA provided meeting time to RN.
--- NOTE | 2020-12-16 17:32 | NUR ---
PATIENT CONSISTENTLY SATTING 82% ON AIRVO MAX SETTINGS AT THIS TIME. SHE IS PLACED BACK ON BIPAP AND GIVEN MUCH EMOTIONAL SUPPORT
[2020-12-17] VITALS (1290 sets, daily range): BP systolic 151–167; BP diastolic 82–100; PULSE 71–92; TEMP 97.5–97.7; O2SAT 62–97
[2020-12-17 05:07] LABS: HEMATOCRIT 42.3 % (37.0-47.0); HEMOGLOBIN 13.6 g/dl (12.5-16.0); MEAN CELL VOLUME 91 fl (80.0-100.0); MEAN CORPUSCULAR HEMOGLOBIN 29 pg (27.0-31.0); MEAN CORPUSCULAR HGB CONC 32 g/dl (33.0-37.0); MEAN PLATELET VOLUME 10.1 fl (7.4-10.4); PLATELET COUNT 187 K/mm3 (130-400); RED BLOOD COUNT 4.65 M/mm3 (4.10-5.30); REDCELL DISTRIBUTION WIDTH-CV 14.6 % (11.5-14.5)
[2020-12-17 05:14] LABS: INR 2.9 (0.8-3.0); PROTHROMBIN TIME 32.7 SECONDS (9.7-12.8)
[2020-12-17 05:29] LABS: ARTERIAL BLD GAS O2 SATURATION 93.7 % (92-100); ARTERIAL BLD GAS TCO2 CT 33.2; ARTERIAL BLOOD GAS BASE EXCESS 7.4 (-2-2); ARTERIAL BLOOD GAS HCO3 31.9 meq/L (22-26); ARTERIAL BLOOD GAS PCO2 44.1 mmHg (35-45); ARTERIAL BLOOD GAS PO2 62.8 mmHg (80-100); ARTERIAL BLOOD GAS pH 7.48 (7.35-7.45)
[2020-12-17 05:45] LABS: ALBUMIN 2.8 gm/dL (3.5-5.0); BILIRUBIN,TOTAL 0.7 mg/dL (0.0-1.0); CREATININE, serum 0.52 (0.52-1.25); MAGNESIUM 2.2 mg/dL (1.6-2.3); PHOSPHOROUS 3.2 mg/dL (2.5-4.5); POTASSIUM 4.4 mmol/L (3.4-5.0); TOTAL PROTEIN 6.8 gm/dL (6.4-8.2)
--- NOTE | 2020-12-17 09:00 | NUR ---
Patient awake and resting in bed; wearing BIPAP at this time. Placed on Air VO for a break from BIPAP and to administer morning pills. 02 desaturated to the low 80's after only a few minutes on max airvo settings. Placed BIPAP back on at this time. 02 back to low 90's after several minutes on BIPAP. Dr. Brothers currently on the phone with family to discuss plan of care. Will continue to monitor.
--- NOTE | 2020-12-17 13:38 | NUR ---
Set up zoom call with patient and family. Currently on Airvo. Will continue to monitor oxygen levels.
--- NOTE | 2020-12-17 14:51 | NUR ---
Rn Medical Inpatient Services assisted in facilitating a family meeting. Dr. Brothers spoke with patient's children, Aleksandra and Jesse about plan of care. Following the family meeting, JOANNA followed up with Aleksandra who advised she was able to facetime with patient which was helpful. Aleksandra advised that they agree with the plan to get patient to [facility] as soon as she is stable for transfer. JOANNA contacted Humberto at [facility] and faxed clinical updates. Discharge Plan: [facility]
--- NOTE | 2020-12-17 20:47 | NUR ---
Received report from SUZANNE Sykes. All medications verified and all questions answered. Patient resting in bed with bipap mask on watching TV. No concerns or complaints noted at this time. Patient in droplet/contact precautions d/t positive covid 19 test result. Will resume care of patient at this time. VSS
[2020-12-17 20:53] LABS: COLLECTION METHOD CLEAN CATCH
[2020-12-17 21:06] LABS: BUDDING YEAST Present /hpf; MUCOUS Present /lpf; PH 7 (5-8); SQUAMOUS EPITHELIAL 0-2 /hpf; URINE APPEARANCE Cloudy; URINE BACTERIA Rare /hpf; URINE BILIRUBIN Negative (NEGATIVE); URINE BLOOD 3+ (NEGATIVE); URINE COLOR Yellow; URINE GLUCOSE Negative (NEGATIVE); URINE KETONE Negative (NEGATIVE); URINE LEUKOCYTE ESTERASE 2+ (NEGATIVE); URINE NITRATE Negative (NEGATIVE); URINE PROTEIN(semi-quant) 1+ (NEGATIVE); URINE RBC >50 /hpf; URINE UROBILINOGEN >=4.0 mg/dL (NEGATIVE); URINE WBC >50 /hpf
[2020-12-17 21:33] LABS: MAGNESIUM 2.2 mg/dL (1.6-2.3); PHOSPHOROUS 4.1 mg/dL (2.5-4.5); POTASSIUM 4.4 mmol/L (3.4-5.0)
--- NOTE | 2020-12-17 22:03 | NUR ---
Insulin gtt started at 2200 at 3.5units/hr. BG prior to initating insulin gtt was 238.
[2020-12-18] VITALS (1025 sets, daily range): BP systolic 149–161; BP diastolic 86–101; PULSE 71–93; TEMP 97.5–98; O2SAT 63–97
[2020-12-18 05:01] LABS: BASO % 0.1 % (0.0-2.0); GRAN # 19.1 (1.4-6.5); GRAN % 90.2 % (42.2-75.2); HEMATOCRIT 40.2 % (37.0-47.0); HEMOGLOBIN 12.7 g/dl (12.5-16.0); LYMPH # 0.8 (1.2-3.4); LYMPH % 3.9 % (20.0-51.0); MEAN CELL VOLUME 93 fl (80.0-100.0); MEAN CORPUSCULAR HEMOGLOBIN 30 pg (27.0-31.0); MEAN CORPUSCULAR HGB CONC 32 g/dl (33.0-37.0); MEAN PLATELET VOLUME 10.5 fl (7.4-10.4); MONO % 4.9 % (1.7-9.3); PLATELET COUNT 166 K/mm3 (130-400); RED BLOOD COUNT 4.31 M/mm3 (4.10-5.30); REDCELL DISTRIBUTION WIDTH-CV 14.7 % (11.5-14.5)
--- NOTE | 2020-12-18 05:07 | NUR ---
Critical WBC lab value of 21.2 not called to hospitalist d/t value trending down.
[2020-12-18 05:10] LABS: ALBUMIN 2.6 gm/dL (3.5-5.0); BILIRUBIN,TOTAL 0.8 mg/dL (0.0-1.0); CALCIUM 8.8 mg/dL (8.4-10.2); CREATININE, serum 0.65 (0.52-1.25); MAGNESIUM 2.2 mg/dL (1.6-2.3); POTASSIUM 4.1 mmol/L (3.4-5.0); TOTAL PROTEIN 6.5 gm/dL (6.4-8.2)
[2020-12-18 05:43] LABS: ARTERIAL BLD GAS TCO2 CT 27.3; ARTERIAL BLOOD GAS BASE EXCESS 2.2 (-2-2); ARTERIAL BLOOD GAS HCO3 26.1 meq/L (22-26); ARTERIAL BLOOD GAS PCO2 38.3 mmHg (35-45); ARTERIAL BLOOD GAS PO2 64.5 mmHg (80-100); ARTERIAL BLOOD GAS pH 7.45 (7.35-7.45)
[2020-12-18 06:28] LABS: PROTHROMBIN TIME 33.8 SECONDS (9.7-12.8)
--- NOTE | 2020-12-18 07:00 | NUR ---
PT RESTING IN BED ON BIPAP. PT HAS TPN AND INSULIN RUNNING. WILL CONTINUE TO MONITOR.
--- NOTE | 2020-12-18 10:55 | NUR ---
ATTEMPTED TO PLACE PT ON AERVO HIGH FLOW NC AT THIS TIME. PT WAS NOT ABLE TO TOLERATE 60L WITH 95% FIO2. SPO2 WAS 78% AND PT WAS PLACED BACK ON BIPAP PREVIOUS SETTINGS. PT JAVIER BIPAP WITH FULL FACEMASK BETTER. SPO2 RETURNED TO 90% ON BIPAP 100%.-
--- NOTE | 2020-12-18 12:11 | NUR ---
CALL PLACED TO NO ANSWER. MESSAGE LEFT.
--- NOTE | 2020-12-18 18:04 | NUR ---
1700- 12 hour urine started. Mello placed in ice. 1744- Spoke with regarding abx coverage, positive BC, Echo ordered. Abx changed.
--- NOTE | 2020-12-18 21:35 | NUR ---
Vancomycin Initial Dosing Pharmacy Note Ordering provider: Michael Jones MD 80 YO F Indication/duration: BACTEREMIA / 14 DAYS GOAL: 15-20 HX: DATE SCR VT DOSING REGIMEN 10/23/15 0.79 9.69 1 GM Q12H 10/24/15 0.8 14.8 1 GM Q8H BMI: 26.4 WT: 76.4 SCR: 0.65 EST CRCL ~ 86 ML/MIN T 1/2 ~ 9H TMAX: 98 WBC: 16.8 -> 24.6 -> 21.2 MICRO 12/17 BCX FROM PICC REPORTING STAPH SPEICES IDENTIFIED BY Lot18 12/18 REPEAT MICRO IN PROCESS PT LOADED WITH 1.5 GM (~20 MG/KG) X1. PT THEN STARTED ON MAINTENANCE REGIMEN OF 1 GM Q8H BASED ON PAST DOSING HISTORY. PT HAS PROVEN SHE DOES NOT FOLLOW POPULATION BASED KINETICS AND REQUIRES MORE AGGRESIVE DOSING TO ACHEIVE DESIRED TROUGH GOALS. WILL FOLLOW RENAL FUNCTION, MICRO, LEVELS, AND CARE PLAN CLOSELY FOR NEED TO ADJUST THERAPY. THANK YOU FOR THIS DOSING CONSULT!
[2020-12-19] VITALS (1189 sets, daily range): BP systolic 110–181; BP diastolic 64–114; PULSE 59–105; TEMP 97.7–98; O2SAT 65–95
--- NOTE | 2020-12-19 00:41 | NUR ---
SALOMON AND RODO KEPT IN ICE OVERNIGHT FOR URINE UREA NITROGEN SAMPLE.
[2020-12-19 04:23] LABS: ARTERIAL BLOOD GAS HCO3 30.6 meq/L (22-26); ARTERIAL BLOOD GAS PCO2 45.5 mmHg (35-45); ARTERIAL BLOOD GAS pH 7.44 (7.35-7.45)
[2020-12-19 04:24] LABS: ARTERIAL BLD GAS O2 SATURATION 89.4 % (92-100); ARTERIAL BLOOD GAS BASE EXCESS 5.7 (-2-2)
[2020-12-19 06:10] LABS: BASO # 0.1 (0.0-0.2); BASO % 0.2 % (0.0-2.0); GRAN # 20.9 (1.4-6.5); GRAN % 88.6 % (42.2-75.2); HEMATOCRIT 40.8 % (37.0-47.0); LYMPH # 0.7 (1.2-3.4); MEAN CELL VOLUME 95 fl (80.0-100.0); MEAN CORPUSCULAR HEMOGLOBIN 30 pg (27.0-31.0); MEAN CORPUSCULAR HGB CONC 32 g/dl (33.0-37.0); MEAN PLATELET VOLUME 11.3 fl (7.4-10.4); MONO # 1.6 (0.1-0.6); MONO % 6.8 % (1.7-9.3); PLATELET COUNT 165 K/mm3 (130-400); REDCELL DISTRIBUTION WIDTH-CV 15.3 % (11.5-14.5)
[2020-12-19 06:23] LABS: CALCIUM 8.1 mg/dL (8.4-10.2); CREATININE, serum 0.86 (0.52-1.25); POTASSIUM 4.9 mmol/L (3.4-5.0)
[2020-12-19 06:43] LABS: 12 HR URINE TOTAL VOLUME 0.85 L
--- NOTE | 2020-12-19 07:00 | NUR ---
PT RESTING ON BIPAP. PT HAS PRECEDEX AND TPN RUNNING. WILL CONTINUE TO MONTIOR.
--- NOTE | 2020-12-19 08:30 | NUR ---
EARLY IN SHIFT PT ASKED IFSHE WAS GOING TO . DISCUSSED PLAN OF CARE, INTERVENTIONS AND POSSIBLE OUTCOMES WITH PATIENT. SEVERAL OTHER TIMES PT REPEATED SAME QUESTIONS ABOUT HER OUTLOOK OF TREATMENT. ALSO ASKED IF HER CHILDREN WERE AWARE OF SITUATION/WORRRIED. TOLD PT DR JOHNSON HAS HAD A FAMILY MEETING WITH THEM AND PLANS TO CALL THEM AT LEAST EVERYOTHER DAY. DAUGHTER CALLED AND WAS UPDATED OF MOTHERS STATUS AND CONVERSATIONS DISCUSSED ABOVE. MEDICALLY- PT HAD HIGH DBP TREATED WITH 1 DOSE OF HYDRALAZINE. ALSO REPORTED FEELING SOB- EXTRA DUONEB TREATMENT GIVEN AND ABG DRAWN. PT REMAINS ON BIIPAP 100% WITH PRECEDEX NOW ON BOARD TO HELP WITH PT FEELING SHIRT OF BREATH.
[2020-12-19 08:58] LABS: INR 3.1 (0.8-3.0); PROTHROMBIN TIME 34.8 SECONDS (9.7-12.8)
[2020-12-19 10:35] LABS: CALCIUM 8.6 mg/dL (8.4-10.2); CREATININE, serum 0.51 (0.52-1.25); POTASSIUM 3.9 mmol/L (3.4-5.0)
--- NOTE | 2020-12-19 12:01 | NUR ---
CALLED AND TALKED WITH PT'S DAUGHTER REGARDING PT'S RESPIRATORY STATUS. PT IS MAXED ON BIPAP AND STILL ONLY SATING 85-88%. PT AND DAUGHTER STILL CHOOSING DNR/DNI. WILL COINTUE WITH BIPAP AND PRECEDEX DRIP AT THIS TIME.
[2020-12-20] VITALS (978 sets, daily range): BP systolic 114–165; BP diastolic 67–89; PULSE 64–87; TEMP 89.2–98.1; O2SAT 56–94
--- NOTE | 2020-12-20 01:55 | NUR ---
PATIENT'S DAUGHTERS AND SON CALLED FOR UPDATE. STEP DAUGHTER, SUSAN, AND PTS SON WERE ABLE TO TALK TO PATIENT BY HOLDING PHONE UP TO PTS EAR. FAMILY ASKED ABOUT INFECTION AND O2 SATS. NO CONCERNS AT THIS TIME. CHILDREN PLAN TO CALL AGAIN TOMORROW NIGHT.
[2020-12-20 04:15] LABS: BASO % 0.1 % (0.0-2.0); GRAN # 20.1 (1.4-6.5); GRAN % 90.4 % (42.2-75.2); HEMATOCRIT 43.1 % (37.0-47.0); HEMOGLOBIN 13.8 g/dl (12.5-16.0); LYMPH # 0.7 (1.2-3.4); LYMPH % 3.3 % (20.0-51.0); MEAN CELL VOLUME 91 fl (80.0-100.0); MEAN CORPUSCULAR HEMOGLOBIN 29 pg (27.0-31.0); MEAN CORPUSCULAR HGB CONC 32 g/dl (33.0-37.0); MEAN PLATELET VOLUME 10.8 fl (7.4-10.4); MONO # 1.1 (0.1-0.6); MONO % 4.9 % (1.7-9.3); PLATELET COUNT 139 K/mm3 (130-400); RED BLOOD COUNT 4.74 M/mm3 (4.10-5.30); REDCELL DISTRIBUTION WIDTH-CV 15.1 % (11.5-14.5)
[2020-12-20 04:28] LABS: CALCIUM 8.8 mg/dL (8.4-10.2); CREATININE, serum 0.63 (0.52-1.25); MAGNESIUM 2.4 mg/dL (1.6-2.3); PHOSPHOROUS 3.7 mg/dL (2.5-4.5); POTASSIUM 3.8 mmol/L (3.4-5.0)
[2020-12-20 06:00] LABS: ARTERIAL BLD GAS O2 SATURATION 85.9 % (92-100); ARTERIAL BLOOD GAS BASE EXCESS 3.5 (-2-2); ARTERIAL BLOOD GAS HCO3 27.1 meq/L (22-26); ARTERIAL BLOOD GAS PCO2 37.7 mmHg (35-45); ARTERIAL BLOOD GAS PO2 50.2 mmHg (80-100); ARTERIAL BLOOD GAS pH 7.47 (7.35-7.45)
--- NOTE | 2020-12-20 07:25 | NUR ---
RECEIVED REPORT FROM SUZANNE FRANKEL. PATIENT RESTING IN BED WITH EYES CLOSED. STILL DEPENDENT ON BIPAP. VSS. JADEN PICC IN PLACE. SEE GTT TITRATION FLOWSHEET. LATIF CATHETER IN PATENT AND DRAINING TO GRAVITY. CALL BUTTON WITHIN REACH.
--- NOTE | 2020-12-20 07:25 | NUR ---
RECEIVED REPORT FROM SUZANNE FRANKEL. VSS. STILL ON VENTILATOR. SEE GTT TITRATION FLOWSHEET. LATIF PATENT AND DRAINING TO GRAVITY. JADEN PICC IN PLACE. WAS TOLD JTUBE WAS CLOGGED. WILL ADDRESS DURING PATIENT ROUNDS
--- NOTE | 2020-12-20 07:48 | NUR ---
INCREASED PRECEDEX DT PT RESTLESSNESS AND INCREASED O2 DEMAND. PT CANT RELAX AND CAUSING SATS TO DROP.
--- NOTE | 2020-12-20 07:56 | NUR ---
PTS CHILDREN UPDATED LAST NIGHT. PRECEDEX INCREASED IN AM DT PT BECOMING RESTLESS AND CAUSING DESATS HIGH 70-80%. ONCE SHE RELAXED/FELL ASLEEP O2 QUICKLY INCREASED TO HIGH 80-LOW 90%S. UOP ADEQUATE. AFEBRILE. NO PAIN. PT UNABLE TO TOLERATE MUCH TIME OFF MASK FOR DRINKS/OC AND ALSO REFUSED BATHING AND TURNS SEVERAL TIMES. LOOKS AND REPORTS FEELING TIRED.
[2020-12-21] VITALS (587 sets, daily range): BP systolic 134–143; BP diastolic 70–85; PULSE 79–106; TEMP 98.4–98.8; O2SAT 45–89
[2020-12-21 05:06] LABS: HEMATOCRIT 43.8 % (37.0-47.0); HEMOGLOBIN 13.8 g/dl (12.5-16.0); MEAN CELL VOLUME 93 fl (80.0-100.0); MEAN CORPUSCULAR HEMOGLOBIN 29 pg (27.0-31.0); MEAN CORPUSCULAR HGB CONC 32 g/dl (33.0-37.0); MEAN PLATELET VOLUME 11.3 fl (7.4-10.4); PLATELET COUNT 120 K/mm3 (130-400); RED BLOOD COUNT 4.71 M/mm3 (4.10-5.30); REDCELL DISTRIBUTION WIDTH-CV 15.8 % (11.5-14.5)
[2020-12-21 05:14] LABS: INR 2.1 (0.8-3.0); PROTHROMBIN TIME 23.5 SECONDS (9.7-12.8)
[2020-12-21 05:15] LABS: CALCIUM 8.9 mg/dL (8.4-10.2); CREATININE, serum 0.77 (0.52-1.25); POTASSIUM 3.9 mmol/L (3.4-5.0)
[2020-12-21 06:02] LABS: ANISOCYTOSIS 1+; BAND 4 % (0-10); LYMPHOCYTE 5 % (20.0-51.0); NEUTROPHILS 90 % (42.0-75.2); PLATELET ESTIMATE DECREASED (NORMAL)
[2020-12-21 06:03] LABS: HYPOCHROMIA 2+
--- NOTE | 2020-12-21 08:00 | NUR ---
Pt awake, restless and confused. Pt too weak to speak over BiPAP ventilations and pt unable to tolerate being off BiPAP - SpO2 decreases rapidly to < 60% Pt unable to speak in complete sentences d/t dyspnea.
--- NOTE | 2020-12-21 10:27 | NUR ---
Notified by Dr Brothers of pt to be removed from Bipap later today and he requested that I contact the pt's daughter. I spoke with Aleksandra who reports that her brother, Jesse and his Ruthy, will arive this afternoon around 1430. Aleksandra, Jesse, and Ruthy would like to be in the room with Ana M after the bipap is removed and are aware that they must wear PPE as instructed for their own safety although there is still some risk of exposure by being with someone with covid. Aleksandra reports that no one in the family has covid. She also requested that her other brother and Ana M's be allowed to wait in the waiting room. This was discussed with Bonnie Ocasio who did agree to these requests. They are also aware that typically these visits are usually limited to 1 hour.
--- NOTE | 2020-12-21 10:30 | NUR ---
MD Zev and Yokasta Tobar RN(Palliatitive Care) spoke with family members regarding goals/plan of care. New plan is for family to arrive around 1400, remove BiPAP, then allow 3 visitors to visit as care is withdrawn - plan created and approved by SUZANNE Allan (ICU director).
--- NOTE | 2020-12-21 10:41 | NUR ---
[facility] for Vera. She is a member of [facility] in [place]. Carmelo reported that he would contact a bung sewer to provide last rites to this covid + patient.
--- NOTE | 2020-12-21 12:30 | NUR ---
3 Family members present in room with pt utilizing proper PPE. BiPAP mask will be removed when 2 other family members arrive and are in waiting room.
--- NOTE | 2020-12-21 15:30 | NUR ---
1530: Daughter and [id number] present at bedside while BiPAP removed. 1534: Time of called at 1534, asystole followed by PEA noted on monitor. 1545: Family members left room, all belongings with family (2ear rings, bracelet, tablet, cellphone) Dentures, clothing and misc items to be taken by home. [employer] Specialist and MD Real notified of .
--- NOTE | 2020-12-21 16:19 | NUR ---
Call placed to [facility]. Patient will not be a canidate for donation due to COVID-19. She may be released to the home. [facility] call and made aware of of patient and that she is ready for picker operator. Call also placed to Dr. Perdue's office regarding the patients .
--- NOTE | 2020-12-21 16:52 | NUR ---
Patient's family plans to withdraw care this date and are at bedside.
--- NOTE | 2020-12-21 17:14 | NUR ---
Pt and all remaining belongings sent with home vendor representatives
== END 2020-12-21 16:00 | disposition expired | DRG 177 ==
LOC: COL.ER 08:00 → MEDICAL 10:29 → ICU 12-10 13:44
PROVIDERS: Emergency Medicine; Family Medicine; Internal Medicine Critical Care Medicine; Internal Medicine Infectious Disease; Internal Medicine Pulmonary Disease; Nurse Practitioner Family; Student in an Organized Health Care Education/Training Program; ADMIT Hospitalist
PROC: 02HV33Z Insertion of Infusion Device into Superior Vena Cava, Percutaneous Approach (ICD-10-PCS; principal; 2020-12-06)
PROC: XW033E5 Introduction of Remdesivir Anti-infective into Peripheral Vein, Percutaneous Approach, New Technology Group 5 (ICD-10-PCS; 2020-12-06)
DX: U07.1 COVID-19 (principal); J12.82 Pneumonia due to coronavirus disease 2019; J96.01 Acute respiratory failure with hypoxia; G93.41 Metabolic encephalopathy; E46 Unspecified protein-calorie malnutrition; I48.19 Other persistent atrial fibrillation; Z66 Do not resuscitate; Z51.5 Encounter for palliative care; R11.2 Nausea with vomiting, unspecified; R79.1 Abnormal coagulation profile; I10 Essential (primary) hypertension; E78.5 Hyperlipidemia, unspecified; E03.9 Hypothyroidism, unspecified; R19.7 Diarrhea, unspecified; E11.65 Type 2 diabetes mellitus with hyperglycemia; R74.01 Elevation of levels of liver transaminase levels; Z88.2 Allergy status to sulfonamides; Z79.01 Long term (current) use of anticoagulants; Z79.890 Hormone replacement therapy; Z68.26 Body mass index [BMI] 26.0-26.9, adult
CPT/HCPCS: 99232-AI; 99233-AI; A4217; C1751; C9113; J0282; J0360; J0610; J0696; J1100; J1650; J1815; J1940; J2060; J2405; J2543; J2550; J3370; J3475; J3480; J7030; J7050; J7060; J7131; J8540